=== PATIENT | female | born 1985 | race Two or more races ===

== ENCOUNTER 2023-02-08 06:19 | Inpatient (IN) | payer OTHER ==
[~2023-02-08] VITALS: Ht 170.2 cm; Wt 3.2 kg
[2023-02-08] MEDS ORDERED: IRON325 MG PO (06:42)
[2023-02-08] MEDS ORDERED: PRENATAL TABLE1 EAC1 PO (06:42)
[2023-02-11] MEDS ORDERED: COLACE100 MG PO (15:15)
[2023-02-11] MEDS ORDERED: PERCOCET 5-3251 EACH PO (15:15)
[2023-02-11] MEDS ORDERED: SIMETHICONE80 MG PO (15:15)
[2023-02-11] MEDS ORDERED: IBU800 MG PO (15:15)
== END 2023-02-11 15:43 | disposition home or self-care (01) | DRG 785 ==
LOC: OB/GYN 06:19 → O/R 06:19 → LDR 06:19 → O/R 10:16 → OB/GYN 13:39
PROVIDERS: Student in an Organized Health Care Education/Training Program; ADMIT Obstetrics & Gynecology; ATTEND Obstetrics & Gynecology
PROC: 0UB70ZZ Excision of Bilateral Fallopian Tubes, Open Approach (ICD-10-PCS; 2023-02-08)
PROC: 4A1HXCZ Monitoring of Products of Conception, Cardiac Rate, External Approach (ICD-10-PCS; 2023-02-08)
PROC: 10D00Z1 Extraction of Products of Conception, Low, Open Approach (ICD-10-PCS; principal; 2023-02-08 11:00)
DX: O34.211 Maternal care for low transverse scar from previous cesarean delivery (principal); Z3A.39 39 weeks gestation of pregnancy; Z37.0 Single live birth; Z30.2 Encounter for sterilization; Z20.822 Contact with and (suspected) exposure to COVID-19